=== PATIENT | female | born 1970 | race Caucasian/White ===

== ENCOUNTER → 2019-03-13 | Outpatient (CLI) | payer BC ==
--- NOTE | 2019-03-14 18:56 | US ---
US THYROID CLINICAL STATEMENT: Endocrine disorder. COMPARISON: No palpable mass, no prior thyroid surgery or therapy. TECHNIQUE: Transcutaneous scanning, grayscale and Doppler modes. FINDINGS: Size right thyroid lobe: 4.5 x 2.0 x 1.3 cm. Heterogeneous echoes. Size left thyroid lobe: 3.2 x 1.7 x 1.3 cm. Heterogeneous echoes. Size isthmus: 0.54 cm. Heterogeneous echoes. Estimated total number of nodules greater than or equal to 1 cm: None. Nodule 1: Size: 0.7 x 0.6 x 0 point cm Location: Left Mid Composition: solid or almost completely solid: 2 points Echogenicity: hypoechoic: 2 points Shape: wider than tall: 0 points Margins: smooth: 0 points Echogenic foci: none: 0 points ACR Total Points: 4; ACR TI-RADS risk category: TR4 - moderately suspicious nodule. No cyst, large calcifications, or parenchymal edema in the thyroid or soft tissues. No dominant solid mass in the soft tissues. IMPRESSION: 1. Nodule 1: ACR TI-RADS 2017 Category TR4. Recommend: No further follow-up.. Recommendations based upon [facility] [employer] [facility] recommendations and ACR TI-RADS 2017 guidelines. Please see below*. 2. Soft tissue around the thyroid gland is unremarkable. *ACR TI-RADS 2017 Recommendations: TR1: No FNA or follow up TR2: No FNA or follow up TR3: FNA if >/= 2.5 cm, follow up if 1.5 - 2.4 cm in 1, 3, and 5 years TR4: FNA if >/= 1.5 cm, follow up if 1.0 - 1.4 cm in 1, 2, 3, and 5 years TR5: FNA if >/= 1.0 cm, follow up if 0.5 - 0.9 cm every year for 5 years ACR TI-RADS recommends that no more than two nodules with the highest ACR TI-RADS total point should be biopsied and no more than four nodules should be followed. These recommendations do not apply to patients with increased risk for thyroid cancer or patients with symptomatic thyroid disease. Electronically signed by: Hill Matute MD 03/14/2019 6:54 PM CDT
== END ==
LOC: US 13:22
PROVIDERS: ATTEND Nurse Practitioner
DX: E34.9 Endocrine disorder, unspecified (principal); E04.1 Nontoxic single thyroid nodule